=== PATIENT | female | born 1950 | race Caucasian/White ===

== ENCOUNTER 2017-12-12 08:06 | Emergency (ER) | payer MEDICARE, OTHER ==
[~2017-12-12] VITALS: Ht 162.6 cm; Wt 93.0 kg
[2017-12-12] MEDS ORDERED: LISI10TA2 (08:44)
--- NOTE | 2017-12-12 08:44 | ED Lower Extremity ---
General Chief Complaint: Lower Extremity Stated Complaint: FALL-LEFT LEG INJ Source: patient Exam Limitations: no limitations History of Present Illness Date Seen by Provider: Dec 12, 2017 Time Seen by Provider: 08:34 Initial Comments Patient presents to ER by private conveyance with a chief complaint that late last night she was getting out of her house going down one step and slipped on some ice Reading her legs out less scissorlike fashion while holding onto the door. She says she did not strike her hip her head. There is no loss of consciousness however she says that her left leg went out laterally and she felt that it had immediate tearing sensation and pain in her left medial knee. She has no history of injury to that knee. She took some Tylenol which helped however it gives her excruciating pain and is hard to sleep on his if she moves that knee. She did walk into the ER. She does not smoke. Constitutional: No chills, No diaphoresis EENTM: No ear pain, No blurred vision Respiratory: No cough, No short of breath Cardiovascular: No chest pain, No palpitations Gastrointestinal: No abdominal pain, No constipation, No diarrhea Genitourinary: No discharge, No dysuria Musculoskeletal: see HPI, No back pain, joint pain Past Zajoiqa-Qbkyac-Vdrzyi Hx Patient Social History Alcohol Use: Denies Use Recreational Drug Use: No Smoking Status: Never a Smoker Recent Foreign Travel: No Contact w/Someone Who Travel: No Physical Exam Vital Signs Capillary Refill : General Appearance: WD/WN, mild distress HEENT: PERRL/EOMI, pharynx normal Cardiovascular: normal peripheral pulses, regular rate, rhythm, no edema Respiratory: no respiratory distress, no accessory muscle use Hips: bilateral hip non-tender, bilateral hip normal inspection, bilateral hip normal range of motion, bilateral hip no evidence of injury Knees: right knee non-tender, bilateral knee normal inspection, bilateral knee normal range of motion, right knee no evidence of injury, left knee bone tenderness, left knee joint effusion (trace), left knee pain (anterior medial), left knee soft tissue tenderness (medial), left knee other (valgus stress causes pain and has mild laxity on the left side) Ankles: bilateral ankle non-tender, bilateral ankle normal inspection, bilateral ankle normal range of motion, bilateral ankle no evidence of injury Reflexes: 2+ knee (R), 2+ knee (L) Neurologic/Tendon: normal sensation, normal motor functions, normal tendon functions, responds to pain, no evidence tendon injury Neurologic/Psychiatric: no motor/sensory deficits, alert, normal mood/affect, oriented x 3 Skin: normal color, warm/dry Progress/Results/Core Measures Progress Note : Time: 08:42 Progress Note Knee examination positive for pain on valgus stressing of the left knee. Concern for medial collateral ligament partial tear. A fairly mild injury since she's walking on it and x-rays are not indicated. We are going to try conservative therapy and have her follow-up with her primary care physician. Departure Impression Impression: Primary Impression: Knee MCL sprain Qualified Codes: S83.412A - Sprain of medial collateral ligament of left knee , initial encounter Disposition: 01 HOME, SELF-CARE Condition: Stable Departure-Patient Inst. Decision time for Depature: 08:54 Referrals: [facility] (PCP/Family) Primary Care Physician Patient Instructions: Ligament Injuries in the Knee (DC) Add. Discharge Instructions: Please apply ice for 20 minutes every 4 hours for the first 3 days to your knee. Keep the knee elevated when possible and do not use it if you don't need to. Wear an compressive sleeve or Jules bandage around the knee. Expect improvement in 4-6 weeks. If you're not seeing some improvement in the first couple weeks talk to your doctor about physical therapy. Avoid reinjury of the knee at all costs. Treat the ice around your home. Treat the pain with Tylenol 1000 mg every 8 hours followed by ibuprofen 800 mg every 8 hours as needed. Use creams such as icy hot or Biofreeze over your knee. All discharge instructions reviewed with patient and/or family. Voiced understanding. Copy Copies To 1: BETO CHAMBERS TITUS J Dec 12, 2017 08:44
[2017-12-12 08:59] VITALS: BP 176/92
== END 2017-12-12 08:59 | disposition home or self-care (01) ==
LOC: EDUNIT# 08:06 → ER 08:08
DX: S83.412A Sprain of medial collateral ligament of left knee, initial encounter (principal); W01.0XXA Fall on same level from slipping, tripping and stumbling without subsequent striking against object, initial encounter
CPT/HCPCS: 99282